=== PATIENT | male | born 1950 | race Caucasian/White ===

== ENCOUNTER 2018-09-02 11:04 | Emergency (ER) | payer BC ==
[2018-09-02] MEDS ORDERED: Pepcid 20 MG VIAL IV ONE ×2 (11:20→11:33)
[2018-09-02 11:29] LABS: BASOPHIL % 0.6 % (0.0-0.4); Basophil (Absolute #) 0.05 (0-0.4); Eosinophil % 3.3 % (0.00-5.0); Eosinophil (Absolute #) 0.28 (0-0.5); Granulocytes % 52.6 % (36.0-66.0); Hemoglobin 13.1 gm/dl (12.5-18.0); Lymphocyte (Absolute #) 2.87 (1.0-4.6); Lymphocytes % 33.5 % (24.0-44.0); Mean Cell Volume 96.1 fl (78-100); Mean Corpuscular Hgb Concent. 33.6 g/dl (32-36); Mean Platelet Volume 9.1 fl (6-9.5); Monocyte (Absolute #) 0.86 (0.0-1.3); Platelet Count 231 K/mm3 (150-450); Red Blood Count 4.06 M/mm3 (4.1-5.6); Red Cell Distribution Width 12.3 % (11.5-14.0); White Blood Count 8.6 K/mm3 (4.0-10.5)
[2018-09-02] MEDS: Nitrostat 0.4 MG (ED) SL ONE ×2 (11:34→11:49)
--- NOTE | 2018-09-02 11:43 | ERPHSYRPT ---
- History of Present Illness Time Seen by Provider: 09/02/18 11:40 Historian: patient, family Exam Limitations: no limitations Patient Subjective Stated Complaint: PT states "I think I am having a heart attack. My gums hurt, my chest hurts, it feels julst like the last one I had." Triage Nursing Assessment: Pt presented through the front door, alert and oriented X 3, skin pwd. PT ambulates with an upright steady gait, able to speak in clear full sentences. pt in no apparent respiratory distress. Physician History: PT states "I think I am having a heart attack. My gums hurt, my chest hurts, it feels julst like the last one I had." Pain in epigatric area, radiate to left arm, tingling and numbness and pain around lips, mouth while working on [employer] Timing/Duration: today Activities at Onset: activity Quality: aching Location: substernal Chest Pain Radiation: jaw, arm Severity of Pain-Max: moderate Severity of Pain-Current: mild Modifying Factors: Improves With: nothing Associated Symptoms: denies symptoms Prior Chest Pain/Cardiac Workup: echocardiography, stress test, recently seen/ treated Aspirin Treatment Today: 81 mg x 1 Allergies/Adverse Reactions: naproxen sodium [From Aleve] Allergy (Verified 06/25/14 11:18) Home Medications: Citalopram Hydrobromide 20 mg* [ceLEXa 20 MG] 20 mg PO DAILY 06/25/14 [ History] Clopidogrel Bisulfate [Plavix] 75 mg PO DAILY 06/25/14 [History] Simvastatin [Zocor] 20 mg PO DAILY 06/25/14 [History] Hx Tetanus, Diphtheria Vaccination/Date Given: No Hx Influenza Vaccination/Date Given: Yes Hx Pneumococcal Vaccination/Date Given: No Immunizations Up to Date: Yes - Review of Systems Constitutional: No Fever, No Chills Eyes: No Symptoms Ears, Nose, & Throat: No Symptoms Respiratory: No Cough, No Dyspnea Cardiac: Chest Pain, No Edema, No Syncope Abdominal/Gastrointestinal: No Abdominal Pain, No Nausea, No Vomiting, No Diarrhea Genitourinary Symptoms: No Dysuria Musculoskeletal: No Back Pain, No Neck Pain Skin: No Rash Neurological: No Dizziness, No Focal Weakness, No Sensory Changes Psychological: No Symptoms Endocrine: No Symptoms All Other Systems: Reviewed and Negative - Past Medical History Pertinent Past Medical History: Yes Neurological History: No Pertinent History ENT History: No Pertinent History Cardiac History: High Cholesterol, Myocardial Infarction ([place]), Other Respiratory History: No Pertinent History Endocrine Medical History: No Pertinent History Musculoskeletal History: No Pertinent History GI Medical History: No Pertinent History History: No Pertinent History Psycho-Social History: No Pertinent History Male Reproductive Disorders: No Pertinent History Other Medical History: heart stent placed 8 years ago with mild heart attack - Past Surgical History Past Surgical History: Yes Neuro Surgical History: No Pertinent History Cardiac: Cardiac Catheterization, Cardiac Stent Respiratory: No Pertinent History Gastrointestinal: No Pertinent History Genitourinary: No Pertinent History Musculoskeletal: No Pertinent History Male Surgical History: No Pertinent History - Social History Smoking Status: Former smoker Exposure to second hand smoke: Yes Drug Use: none Patient Lives Alone: No - Nursing Vital Signs Nursing Vital Signs: Initial Vital Signs Temperature 98.1 F 09/02/18 11:07 Pulse Rate 70 09/02/18 11:07 Respiratory Rate 16 09/02/18 11:07 Blood Pressure 162/72 09/02/18 11:07 O2 Sat by Pulse Oximetry 97 09/02/18 11:07 Pain Scale Pain Intensity 0 - Physical Exam General Appearance: no apparent distress, alert Eye Exam: PERRL/EOMI, eyes nml inspection Ears, Nose, Throat Exam: normal ENT inspection, moist mucous membranes Neck Exam: normal inspection, non-tender, supple, full range of motion Respiratory Exam: normal breath sounds, lungs clear, No respiratory distress Cardiovascular Exam: regular rate/rhythm, normal heart sounds Gastrointestinal/Abdomen Exam: soft, No tenderness, No mass Back Exam: normal inspection, No CVA tenderness, No vertebral tenderness Extremity Exam: normal inspection, normal range of motion Neurologic Exam: alert, oriented x 3, cooperative, normal mood/affect, sensation nml, No motor deficits Skin Exam: normal color, warm, dry SpO2: 97 - Course Nursing assessment & vital signs reviewed: Yes EKG Interpreted by Me: Sinus Rhythm, NORMAL ST-T Rhythm Strip: Normal Sinus Rhythm - Radiology Exams Chest X-ray Interpretation: Reviewed by me, Negative Ordered Tests: Active Orders 24 hr Category Date Time Status EKG-ER Only STAT Care 09/02/18 11:20 Active IV Insertion STAT Care 09/02/18 11:20 Active CHEST 2 VIEWS (PA AND LAT) Stat Exams 09/02/18 11:21 Taken AMYLASE Stat Lab 09/02/18 11:20 Completed CBC W DIFF Stat Lab 09/02/18 11:20 Completed CMP Stat Lab 09/02/18 11:20 Completed LIPASE Stat Lab 09/02/18 11:20 Completed TROPONIN Q3H Lab 09/02/18 11:20 Completed TROPONIN Q3H Lab 09/02/18 14:30 Ordered TROPONIN Q3H Lab 09/02/18 17:30 Ordered TROPONIN Q3H Lab 09/02/18 20:30 Ordered TROPONIN Q3H Lab 09/02/18 23:30 Ordered Medication Summary Discontinued Medications Generic Name Dose Route Start Last Admin Trade Name Freq PRN Reason Stop Dose Admin Famotidine 20 mg 09/02/18 11:20 09/02/18 11:34 Pepcid 20 Mg Vial IV 09/02/18 11:21 20 mg STAT ONE Administration Famotidine Confirm 09/02/18 11:33 Pepcid 20 Mg Vial Administered 09/02/18 11:34 Dose 20 mg IV .STK-MED ONE Nitroglycerin 0.4 mg 09/02/18 11:20 09/02/18 11:49 Nitrostat 0.4 Mg (Ed) SL 09/02/18 11:21 Not Given STAT ONE Lab/Rad Data: Laboratory Result Diagrams 09/02/18 11:20 09/02/18 11:20 Laboratory Results 09/02/18 09/02/18 09/02/18 Range/Units Unknown 11:20 11:20 WBC (4.0-10.5) K/mm3 RBC (4.1-5.6) M/mm3 Hgb (12.5-18.0) gm/dl Hct (42-50) % MCV (78-100) fl MCH (26-32) pg MCHC (32-36) g/dl RDW (11.5-14.0) % Plt Count (150-450) K/mm3 MPV (6-9.5) fl Gran % (36.0-66.0) % Eos # (Auto) (0-0.5) Absolute Lymphs (auto) (1.0-4.6) Absolute Monos (auto) (0.0-1.3) Lymphocytes % (24.0-44.0) % Monocytes % (0.0-12.0) % Eosinophils % (0.00-5.0) % Basophils % (0.0-0.4) % Absolute Granulocytes (1.4-6.9) Basophils # (0-0.4) Sodium 143 (137-145) mmol/L Potassium 3.9 (3.5-5.1) mmol/L Chloride 104 (98-107) mmol/L Carbon Dioxide 27 (22-30) mmol/L Anion Gap 14.9 (5-15) MEQ/L BUN 15 (9-20) mg/dL Creatinine 0.93 (0.66-1.25) mg/dL Estimated GFR > 60.0 ML/MIN Glucose 160 H (74-106) mg/dL Hemoglobin A1c 6.68 H (4.5-6.0) % Calcium 9.3 (8.4-10.2) mg/dL Total Bilirubin 0.60 (0.2-1.3) mg/dL AST 29 (17-59) U/L ALT 31 (0-50) U/L Alkaline Phosphatase 77 (38-126) U/L Troponin I < 0.012 (0.000-0.034) ng/mL Serum Total Protein 7.3 (6.3-8.2) g/dL Albumin 4.0 (3.5-5.0) g/dL Amylase 155 H (30-110) U/L Lipase 433 H (23-300) U/L 09/02/18 Range/Units 11:20 WBC 8.6 (4.0-10.5) K/mm3 RBC 4.06 L (4.1-5.6) M/mm3 Hgb 13.1 (12.5-18.0) gm/dl Hct 39.0 L (42-50) % MCV 96.1 (78-100) fl MCH 32.2 H (26-32) pg MCHC 33.6 (32-36) g/dl RDW 12.3 (11.5-14.0) % Plt Count 231 (150-450) K/mm3 MPV 9.1 (6-9.5) fl Gran % 52.6 (36.0-66.0) % Eos # (Auto) 0.28 (0-0.5) Absolute Lymphs (auto) 2.87 (1.0-4.6) Absolute Monos (auto) 0.86 (0.0-1.3) Lymphocytes % 33.5 (24.0-44.0) % Monocytes % 10.0 (0.0-12.0) % Eosinophils % 3.3 (0.00-5.0) % Basophils % 0.6 (0.0-0.4) % Absolute Granulocytes 4.50 (1.4-6.9) Basophils # 0.05 (0-0.4) Sodium (137-145) mmol/L Potassium (3.5-5.1) mmol/L Chloride (98-107) mmol/L Carbon Dioxide (22-30) mmol/L Anion Gap (5-15) MEQ/L BUN (9-20) mg/dL Creatinine (0.66-1.25) mg/dL Estimated GFR ML/MIN Glucose (74-106) mg/dL Hemoglobin A1c (4.5-6.0) % Calcium (8.4-10.2) mg/dL Total Bilirubin (0.2-1.3) mg/dL AST (17-59) U/L ALT (0-50) U/L Alkaline Phosphatase (38-126) U/L Troponin I (0.000-0.034) ng/mL Serum Total Protein (6.3-8.2) g/dL Albumin (3.5-5.0) g/dL Amylase (30-110) U/L Lipase (23-300) U/L - Progress Progress: improved Air Movement: good Blood Culture(s) Obtained: No Antibiotics given: No Counseled pt/family regarding: lab results, diagnosis, need for follow-up, rad results - Departure Departure Disposition: Home Clinical Impression: Chest pain due to GERD Type 2 diabetes mellitus Qualifiers: Diabetes mellitus joint terminal attack controller insulin use: without joint terminal attack controller use Diabetes mellitus complication status: with unspecified complications Qualified Code(s): E11.8 - Type 2 diabetes mellitus with unspecified complications Condition: Stable Critical Care Time: Yes Critical Care Time(excluding separately billable procedures): 30-74 minutes Referrals: OLIVE SHARIF [Primary Care Provider] - ADELITA RIZO [ACTIVE STAFF] - Instructions: Atypical Chest Pain, Acid Reflux (Gastroesophageal Reflux Disease ) in Adults, Type 2 Diabetes, Diabetes Exchange Diet, Diabetes Diet Additional Instructions: During your ER visit, we have performed some blood tests and x-rays. We have performed some blood test to rule out heart attack, which was negative. Your lipase and amylase which are digestive tract enzymes related to pancreatic inflammation suggests that there might be a possibility of either you have a acid reflux and all other gallbladder disease, for which she need further workup by your primary care physician. You should make an appointment in next 1 -2 days during weekdays with your primary care physician. During your ER visit, we also found that you are new onset diabetes mellitus type 2. Your hemoglobin A1c is 6.68, which puts you as a diabetic. We have started you on metformin Exide one tablet 500 mg daily as initial treatment, but you still need further workup and diabetes education as well as nutritional education which should be guided by your primary care physician. Discharge/Care Plan MENARDJUAN SALDANA was seen on 09/02/18 in the Emergency Room. The patient was counseled regarding Diagnosis,Lab results, Imaging studies, need for follow up and when to return to the Emergency Room. Prescriptions given: Discharge Note I have spoken with the patient and/or caregivers. I have explained the patient' s condition, diagnosis and treatment plan based on the information available to me at this time. I have answered the patient's and/or caregiver's questions and addressed any concerns. The patient and/or caregivers have as good understanding of the patient's diagnosis, condition and treatment plan as can be expected at this point. The vital signs have been stable. The patient's condition is stable and appropriate for discharge from the emergency department. The patient will pursue further outpatient evaluation with the primary care physician or other designated or consulting physician as outlined in the discharge instructions. The patient and/or caregivers are agreeable to this plan of care and follow-up instructions have been explained in detail. The patient and/or caregivers have received these instruction. The patient/and or caregivers are aware that any significant change in condition or worsening of symptoms should prompt an immediate return to this or the closest emergency department or call 911. Plan of Treatment: During your ER visit, we have performed some blood tests and x-rays. We have performed some blood test to rule out heart attack, which was negative. Your lipase and amylase which are digestive tract enzymes related to pancreatic inflammation suggests that there might be a possibility of either you have a acid reflux and all other gallbladder disease, for which she need further workup by your primary care physician. You should make an appointment in next 1 -2 days during weekdays with your primary care physician. During your ER visit, we also found that you are new onset diabetes mellitus type 2. Your hemoglobin A1c is 6.68, which puts you as a diabetic. We have started you on metformin Exide one tablet 500 mg daily as initial treatment, but you still need further workup and diabetes education as well as nutritional education which should be guided by your primary care physician. Prescriptions: Metformin HCl Xr 500 mg [Glucophage XR 500 MG] 500 mg PO DAILY #30 tab
[2018-09-02 12:01] LABS: Mean Corpuscular Hemoglobin 32.2 pg (26-32)
[2018-09-02 12:10] LABS: ALKALINE PHOSPHATASE 77 U/L (38-126); AMYLASE 155 U/L (30-110); ANION GAP 14.9 MEQ/L (5-15); BLOOD UREA NITROGEN 15 mg/dL (9-20); CHLORIDE 104 mmol/L (98-107); Calcium 9.3 mg/dL (8.4-10.2); Carbon Dioxide 27 mmol/L (22-30); Creatinine 1 0.93 mg/dL (0.66-1.25); Glucose 160 mg/dL (74-106); LIPASE 433 U/L (23-300); Potassium 3.9 mmol/L (3.5-5.1); SGOT/AST 29 U/L (17-59); SGPT/ALT 31 U/L (0-50); SODIUM 143 mmol/L (137-145); Total Protein 7.3 g/dL (6.3-8.2)
[2018-09-02 13:05] VITALS: BP 105/52; PULSE 63; O2SAT 97
--- NOTE | 2018-09-02 21:20 | XRAY ---
Indication: Epigastric pain. Comparison: None PA/lateral chest demonstrates right mid lung fibrosis/scarring. Remaining heart and lungs unremarkable. Bony thorax intact with mild degenerative changes and old left rib fractures. Impression: Nonacute chest with chronic features.
== END 2018-09-02 13:22 | disposition home or self-care (01) ==
LOC: ED 11:04
DX: K21.9 Gastro-esophageal reflux disease without esophagitis (principal); E11.8 Type 2 diabetes mellitus with unspecified complications; E78.00 Pure hypercholesterolemia, unspecified; Z79.899 Other long term (current) drug therapy; I25.2 Old myocardial infarction
CPT/HCPCS: 36000; 36415; 71046; 80053; 82150; 83036; 83690; 84484; 85025; 93005; 96374; 99284; A9270-GY

== ENCOUNTER 2018-10-23 09:22 | Day surgery (SDC) | payer BC ==
--- NOTE | 2018-10-23 08:35 | HP ---
AMENDED REPORT: DATE OF SURGERY: 10/23/2018 HISTORY OF PRESENT ILLNESS: The patient is a 67 year-old who three weeks ago had some chest pain. In the emergency room ultrasound showed sludge. No nausea, vomiting or diarrhea. No right upper quadrant pain. No jaundice. No change in bowel movements. Given his symptoms had probable chronic cholecystitis, symptomatic biliary sludge. He was given options. Considering progression of gallbladder disease over time prefers to proceed with cholecystectomy at this point. PAST MEDICAL HISTORY: Diabetes mellitus type 2. Hypercholesterolemia. Coronary stents in the past. PAST SURGICAL HISTORY: Appendectomy. Colonoscopy. MEDICATIONS: Omeprazole, Metformin, Plavix, Zocor, Prilosec. ALLERGIES: ALEVE. FAMILY HISTORY: Negative in regards to this problem. SOCIAL HISTORY: No smoking or alcohol abuse. REVIEW OF SYSTEMS: Fourteen systems reviewed per admission assessment. He has some heart disease and diabetes. Otherwise no chest pain or palpitations currently. PHYSICAL EXAMINATION: GENERAL: No acute distress. HEENT: Sclerae nonicteric. NECK: No JVD. CHEST: Equal excursion, nonlabored breathing. CVS: Regular rate and rhythm. ABDOMEN: Soft. No peritoneal signs. EXTREMITIES: No significant edema. NEURO: Alert, oriented, moving extremities symmetrically. No gross motor deficits noted. IMPRESSION: Biliary colic, symptomatic biliary sludge, chronic cholecystitis. I feel the patient will benefit from cholecystectomy. Risks and benefits explained in detail including but not limited to bleeding or infection, risk of trocar injury or hernia, small risk of bowel, bladder or blood vessel injury, small risk of bile leak, bile duct injury, retained stone or sludge possibly requiring further procedure either open or ERCP, general risk of anesthesia, deep venous thrombosis, pulmonary embolism, pneumonia, perioperative risk of aches, pains, bloating, constipation and/or loose stools possibly even chronic in nature, possibility of needing open procedure, possibility procedure may not improve his symptoms. He may need further work up and/or testing, endoscopy, other studies or procedures. He understands and agrees to the planned procedure, will proceed with laparoscopic cholecystectomy with possible open as an outpatient.
[~2018-10-23 09:22] MED LIST: Lactated Ringers 1,000 ML IV ONE; Sensorcaine 0.25% 10 ML ONE
[2018-10-23 09:55] LABS: Hematocrit 40.2 % (42-50); Hemoglobin 13.8 gm/dl (12.5-18.0); Mean Cell Volume 96.2 fl (78-100); Mean Corpuscular Hgb Concent. 34.3 g/dl (32-36); Mean Platelet Volume 9.3 fl (6-9.5); Platelet Count 248 K/mm3 (150-450); Red Blood Count 4.18 M/mm3 (4.1-5.6)
[2018-10-23] MEDS ORDERED: MEFOXIN 2 GM PREMIX** 2 GM/50 ML ML IV ONE (09:59)
[2018-10-23] MEDS ORDERED: MEFOXIN 2 GM PREMIX** 2 GM/50 ML ML IV SCH (10:00)
[2018-10-23] MEDS ORDERED: Lactated Ringers 1,000 ML IV SCH (10:00)
[2018-10-23 10:05] LABS: ALBUMIN 4.2 g/dL (3.5-5.0); ALKALINE PHOSPHATASE 67 U/L (38-126); ANION GAP 12.4 MEQ/L (5-15); BLOOD UREA NITROGEN 17 mg/dL (9-20); CHLORIDE 108 mmol/L (98-107); Calcium 9.5 mg/dL (8.4-10.2); Carbon Dioxide 26 mmol/L (22-30); Creatinine 1 0.84 mg/dL (0.66-1.25); Glucose 122 mg/dL (74-106); Potassium 4.3 mmol/L (3.5-5.1); SGOT/AST 20 U/L (17-59); SGPT/ALT 22 U/L (0-50); SODIUM 142 mmol/L (137-145); Total Protein 7.3 g/dL (6.3-8.2)
[2018-10-23] MEDS ORDERED: SUBLIMAZE 100 MCG/2 ML ONE ×2 (10:17→12:39)
[2018-10-23] MEDS ORDERED: Quelicin Fliptop 200 MG/10 ML ONE (10:17)
[2018-10-23] MEDS ORDERED: DIPRIVAN 200 MG/20 ML IV ONE (10:17)
[2018-10-23] MEDS ORDERED: Zemuron 100 MG/10 ML ONE (10:17)
[2018-10-23] MEDS ORDERED: Ephedrine Sulfate 50 MG/ML ONE (11:56)
[2018-10-23] MEDS ORDERED: Decadron 4 MG INJ ONE (11:58)
[2018-10-23] MEDS ORDERED: Zofran 4 MG/2 ML VIAL ONE (11:58)
[2018-10-23] MEDS ORDERED: TORAdol 30 mg Injection ONE (12:19)
[2018-10-23] MEDS ORDERED: BRIDION 200MG/2ML IV ONE (12:19)
[2018-10-23] MEDS ORDERED: DILAUDID 2 MG INJECTION ONE (12:57)
[2018-10-23 14:32] VITALS: O2SAT 92
[2018-10-23 15:04] VITALS: BP 141/75; PULSE 83
--- NOTE | 2018-10-23 15:25 | OP ---
SURGERY DATE/TIME: 10/23/2018 1145 PREOPERATIVE DIAGNOSIS: Symptomatic biliary colic, symptomatic biliary sludge, chronic cholecystitis. POSTOPERATIVE DIAGNOSIS: Symptomatic biliary colic, symptomatic biliary sludge, chronic cholecystitis. PROCEDURE: Laparoscopic cholecystectomy. SURGEON: Dr. Will Morton. ANESTHESIA: General. ESTIMATED BLOOD LOSS: Minimal. INDICATIONS: As noted above. Risks and benefits explained in detail but not limited to and consent obtained. DESCRIPTION OF PROCEDURE AND FINDINGS: The patient was taken to the OR. General anesthesia induced. Abdomen prepped and draped in the usual sterile fashion. After official time out and no disagreement with planned procedure, a transverse incision made at the supraumbilical area. Fascia grasped and pulled upward. Veress needle inserted and tested with saline. Pneumoperitoneum accomplished insufflating opening pressure of 0-15. An 11 mm bladeless port and camera inserted without difficulty followed by two - 5 mm right upper quadrant ports and 5 mm epigastric port. The gallbladder grasped retracted over the edge of the liver. Dissection carried posterior, lateral to anterior fashion. Slowly carefully cystic duct and infundibular area slowly and carefully well skeletonized until the critical view obtained both anteriorly and posteriorly. Once this was accomplished the cystic duct and cystic artery clipped x3 and divided in usual fashion. One of the gallbladder graspers tore a small hole in the body of the gallbladder spilling small amount of bile. There was no evidence of any stone or sludge spillage, this was suction irrigated as clear as possible. The gallbladder is slowly and carefully dissected free from its dense attachment to the liver bed staying directly on the gallbladder wall clipping additional side branches off the cystic artery as necessary directly on the gallbladder wall. Just prior to releasing from final attachments to anterior edge of the liver the liver bed re-inspected. Clips noted in place in cystic duct and cystic artery stumps. There was slight amount of ooze from a vein on the lateral aspect of the peritoneal reflection edge of the liver up towards the anterior edge of the liver, this required clipping with a Ligaclip. Good hemostasis then noted. Gallbladder released from final attachments anterior edge of the liver placed in Pleatman's sac, pulled up and out the 10-11 port site at the supraumbilical area passed off for pathology. Copious amount of irrigation accomplished lateral to the liver and subhepatic space irrigating until clear. Liver bed re-inspected. Clips noted in place in cystic duct and cystic artery stumps. There were no signs of any active bleeding or bile leakage. It was felt there was no benefit from drain placement. At this point the fascia defect 10/11 site closed with puncture closure device and #1 Vicryl under direct vision of the camera. Pneumoperitoneum decompressed. The wound was irrigated out. Skin incision closed with 4-0 Vicryl. A little bit of oozing subcu in the supraumbilical site this is controlled with pinpoint cautery. Good hemostasis noted. Skin closed with 4-0 Vicryl. Steri-Strips and sterile dressing applied. The patient tolerated the procedure well. There were no immediate complications. Findings discussed with the family out in the waiting area.
== END 2018-10-23 14:55 | disposition home or self-care (01) ==
LOC: SDC 09:22
PROVIDERS: ATTEND Surgery
DX: K80.44 Calculus of bile duct with chronic cholecystitis without obstruction (principal); E11.9 Type 2 diabetes mellitus without complications; E78.00 Pure hypercholesterolemia, unspecified; E78.5 Hyperlipidemia, unspecified; I25.10 Atherosclerotic heart disease of native coronary artery without angina pectoris; Z79.01 Long term (current) use of anticoagulants; Z79.899 Other long term (current) drug therapy
CPT/HCPCS: 36415; 80053; 85027; 88305; J0330; J0694; J1100; J1170; J1885; J2405; J2704; J3010

== ENCOUNTER 2019-01-22 05:49 | Day surgery (SDC) | payer BC ==
[2019-01-22] MEDS ORDERED: Lactated Ringers 1,000 ML IV SCH (06:00)
[2019-01-22] MEDS ORDERED: DIPRIVAN 200 MG/20 ML IV ONE ×2 (06:53→07:14)
[2019-01-22] MEDS ORDERED: Ketamine HCl 50 MG/ML ONE (06:53)
[2019-01-22 08:16] VITALS: BP 114/65; PULSE 61; O2SAT 96
--- NOTE | 2019-01-22 10:53 | OP ---
SURGERY DATE/TIME: 01/22/2019 0657 PREOPERATIVE DIAGNOSIS: History of colon polyps. POSTOPERATIVE DIAGNOSIS: Two small polyps, one in the ascending and one in the transverse colon and sigmoid diverticulosis. PROCEDURE: Colonoscopy with cold forceps biopsy. SURGEON: Dr. Ellis. ANESTHESIA: MAC. Medications given by anesthesia department. HISTORY: The patient is a 68 year-old white male now presenting for repeat examination. He previously had colon polyp approximately three years ago. The patient was felt the need to have endoscopic evaluation. He was appraised of the risks of the procedure including the risk of perforation, phlebitis, untoward reaction to medication, bleeding and missed lesions. The patient verbalized his understanding and desired to have the procedure performed. DESCRIPTION OF PROCEDURE: The patient was given the medications by the anesthesia department. He had continuous pulse oximetry, ECG monitoring, intermittent blood pressure monitoring and tidal CO2 monitoring during the examination. He was placed in the left lateral decubitus position. A digital rectal examination was performed and revealed normal anal sphincter tone, no masses and normal prostate. The flexible Olympus pediatric colonoscope was used to intubate the rectum. A view of the colon was developed sequentially to the cecum. Upon insertion and withdrawal there was noted small polyp in the ascending and transverse colon destroyed using cold biopsy forceps. The patient was also noted to have scattered sigmoid diverticula otherwise no otherwise no other mucosal lesions were encountered. The scope was removed from the patient who tolerated the procedure well and was sent back to OP recovery in good condition. The prep was noted to be fair.
== END 2019-01-22 08:32 | disposition home or self-care (01) ==
LOC: SDC 05:49
PROVIDERS: ATTEND Family Medicine
DX: Z12.11 Encounter for screening for malignant neoplasm of colon (principal); D12.2 Benign neoplasm of ascending colon; D12.3 Benign neoplasm of transverse colon; Z86.010 Personal history of colon polyps; K57.30 Diverticulosis of large intestine without perforation or abscess without bleeding; E11.9 Type 2 diabetes mellitus without complications; E78.5 Hyperlipidemia, unspecified; I25.10 Atherosclerotic heart disease of native coronary artery without angina pectoris
CPT/HCPCS: 82962; 88305; J2704

== ENCOUNTER 2020-11-05 15:34 | Day surgery (SDC) | payer MEDICARE, OTHER ==
[2020-11-05] MEDS ORDERED: Sodium Chloride 0.9(Preservative Free) 10 ML IJ ONE (15:35)
[2020-11-05] MEDS ORDERED: Xylocaine 1% Vial 30 ML PF IJ ONE (15:35)
[2020-11-05] MEDS ORDERED: Decadron 4 MG INJ IV ONE (15:35)
[2020-11-05] MEDS ORDERED: Lactated Ringers 1,000 ML IV ONE (18:01)
--- NOTE | 2020-11-06 11:54 | XRAY ---
41 seconds fluoroscopy time in surgery for cervical MAIN.
--- NOTE | 2020-11-09 00:58 | XRAY ---
Indication: Cervical MAIN. Intraoperative fluoroscopy was provided for 41 seconds. 2 digital spot images submitted for interpretation demonstrate a single the needle tip projected over the cervical-thoracic junction near the midline. A small amount of contrast has been injected for needle tip placement. Correlate with intraoperative findings/report.
== END 2020-11-05 17:39 | disposition home or self-care (01) ==
LOC: SDC-PAIN 15:34
PROVIDERS: ATTEND Psychiatry & Neurology Pain Medicine
DX: M54.12 Radiculopathy, cervical region (principal); E11.9 Type 2 diabetes mellitus without complications; Z79.899 Other long term (current) drug therapy
CPT/HCPCS: 62321; 72040; 77003; 82947; J1100; J2001; Q9966

== ENCOUNTER 2022-05-12 10:53 | Day surgery (SDC) | payer MEDICARE, OTHER ==
[2022-05-12] MEDS ORDERED: Decadron 4 MG INJ IV ONE (10:54)
[2022-05-12] MEDS ORDERED: Sodium Chloride 0.9(Preservative Free) 10 ML IJ ONE (10:54)
[2022-05-12] MEDS ORDERED: LIDOCAINE HCL 1% 50 MG/5 ML VL PF IJ ONE (10:54)
[2022-05-12] MEDS ORDERED: Lactated Ringers 1,000 ML IV ONE (13:19)
--- NOTE | 2022-05-12 14:39 | XRAY ---
Indication: Cervical MAIN. Intraoperative fluoroscopy provided for 42 seconds. 7 digital spot image submitted for interpretation demonstrates posterior needle tip projecting posterior to cervical thoracic junction. Small amount of contrast injected for needle tip placement. Correlate with intraoperative findings/report.
--- NOTE | 2022-05-12 14:49 | XRAY ---
42 seconds fluoroscopy time in surgery for cervical MAIN.
== END 2022-05-12 12:53 | disposition home or self-care (01) ==
LOC: SDC-PAIN 10:53
PROVIDERS: ATTEND Psychiatry & Neurology Pain Medicine
DX: M54.12 Radiculopathy, cervical region (principal); Z79.899 Other long term (current) drug therapy
CPT/HCPCS: 62321; 72040; 77003; 82947; J1100; J2001; Q9966

== ENCOUNTER 2022-05-30 17:36 | Emergency (ER) | payer MEDICARE, OTHER ==
[2022-05-30] MEDS ORDERED: Sodium Chloride 0.9% 1000 ML 1,000 ML IV STA (17:46)
[2022-05-30] MEDS ORDERED: Sodium Chloride 0.9% 1000 ML 1,000 ML ONE (18:05)
[2022-05-30] MEDS ORDERED: HYDROCODONE-ACETAMIN 2.5-108/5 ML SOLUTION ONE ×2 (18:05→19:43)
[2022-05-30] MEDS ORDERED: HYDROCODONE-ACETAMIN 2.5-108/5 ML SOLUTION PO STA ×2 (18:08→19:42)
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
[2022-05-30 18:30] LABS: BASOPHIL % 0.6 % (0.0-0.4); Basophil (Absolute #) 0.06 x10^3/uL (0-0.4); Eosinophil % 3.8 % (0.00-5.0); Eosinophil (Absolute #) 0.39 x10^3/uL (0-0.5); Hematocrit 44.2 % (42-50); Hemoglobin 14.4 g/dL (12.5-18.0); IMMATURE GRAN # 0.04 x10^3u/L (0.00-0.03); IMMATURE GRAN % 0.4 % (0.00-0.4); Lymphocyte (Absolute #) 1.62 x10^3/uL (1.0-4.6); Lymphocytes % 15.8 % (24.0-44.0); Mean Cell Volume 96.5 fL (78-100); Mean Corpuscular Hemoglobin 31.4 pg (26-32); Mean Corpuscular Hgb Concent. 32.6 g/dL (32-36); Mean Platelet Volume 9.4 fL (7.5-11.0); Monocyte (Absolute #) 0.77 x10^3/uL (0.0-1.3); Monocytes % 7.5 % (0.0-12.0); Neutrophil % 71.9 % (36.0-66.0); Platelet Count 278 x10^3/uL (150-450); Red Blood Count 4.58 x10^6/uL (4.1-5.6); Red Cell Distribution Width 12.3 % (11.5-14.0); White Blood Count 10.3 x10^3/uL (4.0-10.5)
[2022-05-30 18:51] LABS: ALBUMIN 4.6 g/dL (3.5-5.0); ALKALINE PHOSPHATASE 75 U/L (38-126); BLOOD UREA NITROGEN 12 mg/dL (9-20); CHLORIDE 104 mmol/L (98-107); Carbon Dioxide 26 mmol/L (22-30); Creatinine 1 0.92 mg/dL (0.66-1.25); EST GLOMERULAR FILTRATION RATE > 60.0 ML/MIN; Glucose 142 mg/dL (74-106); NT PRO BNPII 47.4 pg/mL (<300); Potassium 5.5 mmol/L (3.5-5.1); SGOT/AST 31 U/L (17-59); SGPT/ALT 24 U/L (0-50); SODIUM 142 mmol/L (137-145); Total Protein 8.4 g/dL (6.3-8.2)
[2022-05-30 19:04] VITALS: PULSE 80; O2SAT 96
[2022-05-30 19:07] LABS: INFLUENZA A NEGATIVE (NEGATIVE); INFLUENZA B NEGATIVE (NEGATIVE); RESPIRATORY SYNCTIAL VIRUS NEGATIVE (Negative); SARS-CoV-2 Xpert Express NEGATIVE (NEGATIVE)
[2022-05-30 19:35] VITALS: BP 150/70
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
== END 2022-05-30 19:49 | disposition home or self-care (01) ==
LOC: ED 17:36
DX: J20.9 Acute bronchitis, unspecified (principal); R50.9 Fever, unspecified; R51.9 Headache, unspecified; R05.1 Acute cough; R53.1 Weakness; R07.9 Chest pain, unspecified; E78.5 Hyperlipidemia, unspecified; E11.9 Type 2 diabetes mellitus without complications; Z79.02 Long term (current) use of antithrombotics/antiplatelets; Z79.84 Long term (current) use of oral hypoglycemic drugs; Z79.891 Long term (current) use of opiate analgesic; Z79.52 Long term (current) use of systemic steroids; Z79.899 Other long term (current) drug therapy
CPT/HCPCS: 0241U; 36000; 36415; 71045; 80053; 83605; 83880; 84484; 85025; 87040; 93005; 99284; A9270-GY

== ENCOUNTER 2022-06-13 14:41 | Emergency (ER) | payer MEDICARE, OTHER ==
[2022-06-13] MEDS ORDERED: Rocephin 1000 MG INJ IM ONE (14:56)
[2022-06-13] MEDS ORDERED: solu-CORTEF 250MG IM ONE (14:58)
[2022-06-13] MEDS ORDERED: Rocephin 1000 MG INJ ONE (15:10)
[2022-06-13] MEDS ORDERED: solu-CORTEF 250MG ONE (15:10)
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
[2022-06-13 15:34] VITALS: BP 134/71; PULSE 92; O2SAT 97
== END 2022-06-13 15:43 | disposition home or self-care (01) ==
LOC: ED 14:41
DX: J20.8 Acute bronchitis due to other specified organisms (principal); R05.3 Chronic cough; E78.5 Hyperlipidemia, unspecified; E11.9 Type 2 diabetes mellitus without complications; Z79.02 Long term (current) use of antithrombotics/antiplatelets; Z79.84 Long term (current) use of oral hypoglycemic drugs; Z79.899 Other long term (current) drug therapy
CPT/HCPCS: 96372; 99283; 99291; J0696; J1720

== ENCOUNTER 2022-08-30 16:49 | Observation (INO) | payer MEDICARE, OTHER ==
[2022-08-30] MEDS ORDERED: BABY ASPIRIN 81 MG CHEW PO ONE (17:10)
[2022-08-30 17:17] LABS: Absolute Neutrophil Ct (ANC) 6.16 x10^3/uL (1.4-6.9); BASOPHIL % 0.7 % (0.0-0.4); Basophil (Absolute #) 0.07 x10^3/uL (0-0.4); Eosinophil % 5.4 % (0.00-5.0); Eosinophil (Absolute #) 0.57 x10^3/uL (0-0.5); Hematocrit 41.7 % (42-50); Hemoglobin 13.8 g/dL (12.5-18.0); IMMATURE GRAN # 0.03 x10^3u/L (0.00-0.03); IMMATURE GRAN % 0.3 % (0.00-0.4); Lymphocyte (Absolute #) 2.72 x10^3/uL (1.0-4.6); Mean Cell Volume 96.8 fL (78-100); Mean Corpuscular Hgb Concent. 33.1 g/dL (32-36); Mean Platelet Volume 9.5 fL (7.5-11.0); Monocyte (Absolute #) 0.93 x10^3/uL (0.0-1.3); Monocytes % 8.9 % (0.0-12.0); Neutrophil % 58.7 % (36.0-66.0); Platelet Count 255 x10^3/uL (150-450); Red Blood Count 4.31 x10^6/uL (4.1-5.6); Red Cell Distribution Width 12.2 % (11.5-14.0); White Blood Count 10.5 x10^3/uL (4.0-10.5)
[2022-08-30 17:34] LABS: ALBUMIN 4.1 g/dL (3.5-5.0); ALKALINE PHOSPHATASE 82 U/L (38-126); ANION GAP 11.8 MEQ/L (5-15); BLOOD UREA NITROGEN 18 mg/dL (9-20); CHLORIDE 107 mmol/L (98-107); Calcium 8.9 mg/dL (8.4-10.2); Carbon Dioxide 25 mmol/L (22-30); EST GLOMERULAR FILTRATION RATE > 60.0 ML/MIN; Glucose 173 mg/dL (74-106); NT PRO BNPII 39.7 pg/mL (<300); Potassium 4.8 mmol/L (3.5-5.1); SGOT/AST 25 U/L (17-59); SGPT/ALT 20 U/L (0-50); SODIUM 139 mmol/L (137-145); Total Protein 7.7 g/dL (6.3-8.2)
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
[2022-08-30] MEDS ORDERED: DUONEB 0.5-3 MG/3 ml Neb IH PRN (19:51)
[2022-08-30] MEDS ORDERED: TYLENOL 325 MG PO PRN (19:51)
[2022-08-30] MEDS ORDERED: Zofran 4 MG/2 ML VIAL IV PRN (19:51)
[2022-08-30] MEDS ORDERED: MORPHINE SULFATE 2 MG INJ IV PRN (19:51)
[2022-08-30] MEDS ORDERED: MAALOX ES 30 ML UNIT DOSE PO ONE (21:58)
[2022-08-30] MEDS ORDERED: ceLEXa 20 MG PO SCH (22:00)
[2022-08-30] MEDS ORDERED: VITAMIN D PO SCH (22:30)
[2022-08-30] MEDS ORDERED: PLAVIX Tablet PO SCH (22:30)
[2022-08-30] MEDS ORDERED: FISH OIL 1,000 MG CAPSULE PO SCH (22:30)
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
[2022-08-31 02:20] LABS: Absolute Neutrophil Ct (ANC) 3.83 x10^3/uL (1.4-6.9); BASOPHIL % 1.3 % (0.0-0.4); Basophil (Absolute #) 0.11 x10^3/uL (0-0.4); Eosinophil % 7.7 % (0.00-5.0); Eosinophil (Absolute #) 0.67 x10^3/uL (0-0.5); Hematocrit 40.9 % (42-50); Hemoglobin 13.4 g/dL (12.5-18.0); IMMATURE GRAN # 0.04 x10^3u/L (0.00-0.03); IMMATURE GRAN % 0.5 % (0.00-0.4); Lymphocyte (Absolute #) 3.19 x10^3/uL (1.0-4.6); Lymphocytes % 36.5 % (24.0-44.0); Mean Cell Volume 96.7 fL (78-100); Mean Corpuscular Hemoglobin 31.7 pg (26-32); Mean Corpuscular Hgb Concent. 32.8 g/dL (32-36); Mean Platelet Volume 9.3 fL (7.5-11.0); Monocyte (Absolute #) 0.91 x10^3/uL (0.0-1.3); Monocytes % 10.4 % (0.0-12.0); Neutrophil % 43.6 % (36.0-66.0); Platelet Count 238 x10^3/uL (150-450); Red Blood Count 4.23 x10^6/uL (4.1-5.6); Red Cell Distribution Width 12.2 % (11.5-14.0); White Blood Count 8.8 x10^3/uL (4.0-10.5)
[2022-08-31 02:32] LABS: ALBUMIN 3.9 g/dL (3.5-5.0); ALKALINE PHOSPHATASE 72 U/L (38-126); ANION GAP 11.2 MEQ/L (5-15); BLOOD UREA NITROGEN 16 mg/dL (9-20); CHLORIDE 105 mmol/L (98-107); Calcium 8.8 mg/dL (8.4-10.2); Carbon Dioxide 30 mmol/L (22-30); Creatinine 1 0.94 mg/dL (0.66-1.25); EST GLOMERULAR FILTRATION RATE > 60.0 ML/MIN; Glucose 128 mg/dL (74-106); SGOT/AST 20 U/L (17-59); SGPT/ALT 19 U/L (0-50); SODIUM 141 mmol/L (137-145); Total Protein 7.4 g/dL (6.3-8.2)
[2022-08-31] MEDS ORDERED: PROTONIX 40 MG IV IV ONE (04:34)
[2022-08-31 07:25] VITALS: O2SAT 94
[2022-08-31] MEDS ORDERED: PROTONIX 40 MG IV IV SCH ×2 (10:00→22:00)
[2022-08-31] MEDS ORDERED: ECOTRIN 81 MG PO SCH (10:00)
[2022-08-31 10:01] LABS: AMYLASE 85 U/L (30-110); LIPASE 79 U/L (23-300)
[2022-08-31 11:45] VITALS: BP 138/64; PULSE 65
--- NOTE | 2022-08-31 12:54 | XRAY ---
Indication: Epigastric pain. AAA. Conventional contrast enhanced CTA abdomen/pelvis with bilateral runoff performed using 125 cc Isovue 370 contrast. 2-D sagittal and coronal reformatted images obtained. Additional 3-D reformatted images obtained in separate workstation. Comparison: None Abdominal aorta is normal in course and caliber with very minimal distal eccentric arteriosclerotic calcifications. Normal branching celiac, superior mesenteric, and inferior mesenteric arteries. Very minimal calcification origin celiac artery without critical stenosis or obstruction. Widely patent superior mesenteric and inferior mesenteric arteries. A single widely patent renal artery supplies each kidney. Right leg runoff demonstrates very minimal arteriosclerotic calcifications in the common iliac and distal common femoral arteries. Remaining external iliac, common femoral, deep femoral, superficial femoral, popliteal, and trifurcation vessels are normal in CTA appearance. Peroneal artery tapers off lower leg level with the anterior and posterior tibial arteries crossing the ankle joint to supply the right foot. Left leg runoff demonstrates widely patent common iliac and external iliac arteries. Distal common femoral artery demonstrates very minimal arteriosclerotic calcifications. Remaining deep femoral, superficial femoral, popliteal, and trifurcation vessels are normal in CT appearance. Peroneal artery tapers off lower leg level with the anterior and posterior tibial arteries crossing the ankle joint to supply the left foot. Incidental soft tissue findings include mild diffuse fecal stasis, sigmoid diverticulosis, fatty liver, 1.5 cm right renal exophytic cyst, small fatty left inguinal hernia, and 2.4 x 3.7 x 6.4 cm intramuscular lipoma left rectus femoris muscle. Impression: 1. Very minimal arteriosclerotic calcifications distal aorta and origin celiac artery. Negative AAA. 2. Left and right leg runoff demonstrates very minimal arteriosclerotic calcifications without critical stenosis/obstruction. Remaining left and right leg runoff widely patent with 2 vessel runoff bilaterally. 3. Incidental CT findings including fecal stasis, sigmoid diverticulosis, fatty liver, right renal cyst, fatty left inguinal hernia, and left rectus femoris intramuscular lipoma.
[2022-08-31] MEDS ORDERED: ENOXAPARIN SODIUM SQ SCH (13:00)
--- NOTE | 2022-08-31 13:22 | PCM.DS ---
Discharge Summary Date of Admission: 08/30/22 19:40 Admitting Physician: CARI BRADY MD Primary Care Provider: ADELITA RIZO Allergies Allergies naproxen sodium [From Aleve] Allergy (Mild, Verified 08/30/22 20:25) Swelling Hospital Summary - Hospital Course Hospital Course: Pt is a 71 yo male pt of Dr. Rizo and Dr. Juarez with PMHx CAD, DM, HLD, hx VT, GENEVIEVE, GERD, and anxiety who was admitted through ER with CP to r/o VT. His EKG was nonacute and first troponin was negative. eGFR wnl. WBC nl. He was evaluated by telehospitalist and admitted to med surg. His second and third troponins were elevated and trending upward; pt was asleep and denying chest pain at that time. This morning he tells me that he has zero chest discomfort. He had started having epigastric pain yesterday about 4 pm and came to ER. Given 2 nitro. Had what he thought were reflux symptoms. He last saw Dr. Juarez about a year ago. He had a stent approx 20 years ago, and in 2021 had a heart cath at [facility] with moderate lesions of circmflex and R coronary oscar ry. Repeat EKG this morning with mild ST elevation in III only, NSR. Troponin now elevated to 0.230. I spoke with Dr. Juarez and will transfer pt to [facility] for possible heart catheterization. I spoke with the hospitalist, Dr. Pineda, as well, who will accept the patient. Pt given lovenox (1mg/kg SC q12h). Dr. Juarez wanted pt checked for AAA so CT abd/pelvis with runoff has been don e. - Vitals & Intake/Output Vital Signs: Vital Signs Temperature 97.7 F 08/31/22 11:44 Pulse Rate 65 08/31/22 11:44 Respiratory Rate 18 08/31/22 11:44 Blood Pressure 138/64 08/31/22 11:44 O2 Sat by Pulse Oximetry 94 L 08/31/22 11:44 Intake & Output: Intake & Output 08/29/22 08/30/22 08/31/22 09/01/22 11:59 11:59 11:59 11:59 Intake Total 360 Balance 360 Weight 112.7 kg - Lab Result Diagrams: 08/31/22 02:08 08/31/22 02:08 Lab Results-Last 24 Hrs: Lab Results-Last 24 Hours 08/30/22 08/30/22 08/30/22 Range/Units 17:00 17:00 17:00 WBC 10.5 (4.0-10.5) x10^3/uL RBC 4.31 (4.1-5.6) x10^6/uL Hgb 13.8 (12.5-18.0) g/dL Hct 41.7 L (42-50) % MCV 96.8 (78-100) fL MCH 32.0 (26-32) pg MCHC 33.1 (32-36) g/dL RDW 12.2 (11.5-14.0) % Plt Count 255 (150-450) x10^3/uL MPV 9.5 (7.5-11.0) fL Gran % 58.7 (36.0-66.0) % Immature Gran % (Auto) 0.3 (0.00-0.4) % Nucleat RBC Rel Count 0.0 (0.00-0.1) % Eos # (Auto) 0.57 H (0-0.5) x10^3/uL Immature Gran # (Auto) 0.03 (0.00-0.03) x10^3u/L Absolute Lymphs (auto) 2.72 (1.0-4.6) x10^3/uL Absolute Monos (auto) 0.93 (0.0-1.3) x10^3/uL Absolute Nucleated RBC 0.00 (0.00-0.01) x10^3u/L Lymphocytes % 26.0 (24.0-44.0) % Monocytes % 8.9 (0.0-12.0) % Eosinophils % 5.4 H (0.00-5.0) % Basophils % 0.7 (0.0-0.4) % Absolute Granulocytes 6.16 (1.4-6.9) x10^3/uL Basophils # 0.07 (0-0.4) x10^3/uL Sodium 139 (137-145) mmol/L Potassium 4.8 (3.5-5.1) mmol/L Chloride 107 (98-107) mmol/L Carbon Dioxide 25 (22-30) mmol/L Anion Gap 11.8 (5-15) MEQ/L BUN 18 (9-20) mg/dL Creatinine 1.00 (0.66-1.25) mg/dL Estimated GFR > 60.0 ML/MIN Glucose 173 H (74-106) mg/dL POC Glucometer (74 to 106) mg/dL Hemoglobin A1c (4.5-6.0) % Lactic Acid (0.4-2.0) Calcium 8.9 (8.4-10.2) mg/dL Total Bilirubin 0.60 (0.2-1.3) mg/dL AST 25 (17-59) U/L ALT 20 (0-50) U/L Alkaline Phosphatase 82 (38-126) U/L Troponin I 0.029 (0.000-0.034) ng/mL NT-Pro-B Natriuret Pep 39.7 (<300) pg/mL Serum Total Protein 7.7 (6.3-8.2) g/dL Albumin 4.1 (3.5-5.0) g/dL Amylase (30-110) U/L Lipase (23-300) U/L Procalcitonin (0.030-0.080) ng/mL 08/30/22 08/30/22 08/31/22 Range/Units 21:51 22:19 02:08 WBC (4.0-10.5) x10^3/uL RBC (4.1-5.6) x10^6/uL Hgb (12.5-18.0) g/dL Hct (42-50) % MCV (78-100) fL MCH (26-32) pg MCHC (32-36) g/dL RDW (11.5-14.0) % Plt Count (150-450) x10^3/uL MPV (7.5-11.0) fL Gran % (36.0-66.0) % Immature Gran % (Auto) (0.00-0.4) % Nucleat RBC Rel Count (0.00-0.1) % Eos # (Auto) (0-0.5) x10^3/uL Immature Gran # (Auto) (0.00-0.03) x10^3u/L Absolute Lymphs (auto) (1.0-4.6) x10^3/uL Absolute Monos (auto) (0.0-1.3) x10^3/uL Absolute Nucleated RBC (0.00-0.01) x10^3u/L Lymphocytes % (24.0-44.0) % Monocytes % (0.0-12.0) % Eosinophils % (0.00-5.0) % Basophils % (0.0-0.4) % Absolute Granulocytes (1.4-6.9) x10^3/uL Basophils # (0-0.4) x10^3/uL Sodium (137-145) mmol/L Potassium (3.5-5.1) mmol/L Chloride (98-107) mmol/L Carbon Dioxide (22-30) mmol/L Anion Gap (5-15) MEQ/L BUN (9-20) mg/dL Creatinine (0.66-1.25) mg/dL Estimated GFR ML/MIN Glucose (74-106) mg/dL POC Glucometer 217 H (74 to 106) mg/dL Hemoglobin A1c (4.5-6.0) % Lactic Acid (0.4-2.0) Calcium (8.4-10.2) mg/dL Total Bilirubin (0.2-1.3) mg/dL AST (17-59) U/L ALT (0-50) U/L Alkaline Phosphatase (38-126) U/L Troponin I 0.072 H* 0.189 H* (0.000-0.034) ng/mL NT-Pro-B Natriuret Pep (<300) pg/mL Serum Total Protein (6.3-8.2) g/dL Albumin (3.5-5.0) g/dL Amylase (30-110) U/L Lipase (23-300) U/L Procalcitonin (0.030-0.080) ng/mL 08/31/22 08/31/22 08/31/22 Range/Units 02:08 02:08 07:30 WBC 8.8 (4.0-10.5) x10^3/uL RBC 4.23 (4.1-5.6) x10^6/uL Hgb 13.4 (12.5-18.0) g/dL Hct 40.9 L (42-50) % MCV 96.7 (78-100) fL MCH 31.7 (26-32) pg MCHC 32.8 (32-36) g/dL RDW 12.2 (11.5-14.0) % Plt Count 238 (150-450) x10^3/uL MPV 9.3 (7.5-11.0) fL Gran % 43.6 (36.0-66.0) % Immature Gran % (Auto) 0.5 H (0.00-0.4) % Nucleat RBC Rel Count 0.0 (0.00-0.1) % Eos # (Auto) 0.67 H (0-0.5) x10^3/uL Immature Gran # (Auto) 0.04 H (0.00-0.03) x10^3u/L Absolute Lymphs (auto) 3.19 (1.0-4.6) x10^3/uL Absolute Monos (auto) 0.91 (0.0-1.3) x10^3/uL Absolute Nucleated RBC 0.00 (0.00-0.01) x10^3u/L Lymphocytes % 36.5 (24.0-44.0) % Monocytes % 10.4 (0.0-12.0) % Eosinophils % 7.7 H (0.00-5.0) % Basophils % 1.3 (0.0-0.4) % Absolute Granulocytes 3.83 (1.4-6.9) x10^3/uL Basophils # 0.11 (0-0.4) x10^3/uL Sodium 141 (137-145) mmol/L Potassium 5.0 (3.5-5.1) mmol/L Chloride 105 (98-107) mmol/L Carbon Dioxide 30 (22-30) mmol/L Anion Gap 11.2 (5-15) MEQ/L BUN 16 (9-20) mg/dL Creatinine 0.94 (0.66-1.25) mg/dL Estimated GFR > 60.0 ML/MIN Glucose 128 H (74-106) mg/dL POC Glucometer 148 H (74 to 106) mg/dL Hemoglobin A1c (4.5-6.0) % Lactic Acid (0.4-2.0) Calcium 8.8 (8.4-10.2) mg/dL Total Bilirubin 0.50 (0.2-1.3) mg/dL AST 20 (17-59) U/L ALT 19 (0-50) U/L Alkaline Phosphatase 72 (38-126) U/L Troponin I (0.000-0.034) ng/mL NT-Pro-B Natriuret Pep (<300) pg/mL Serum Total Protein 7.4 (6.3-8.2) g/dL Albumin 3.9 (3.5-5.0) g/dL Amylase (30-110) U/L Lipase (23-300) U/L Procalcitonin (0.030-0.080) ng/mL 08/31/22 08/31/22 08/31/22 Range/Units 08:06 08:20 08:20 WBC (4.0-10.5) x10^3/uL RBC (4.1-5.6) x10^6/uL Hgb (12.5-18.0) g/dL Hct (42-50) % MCV (78-100) fL MCH (26-32) pg MCHC (32-36) g/dL RDW (11.5-14.0) % Plt Count (150-450) x10^3/uL MPV (7.5-11.0) fL Gran % (36.0-66.0) % Immature Gran % (Auto) (0.00-0.4) % Nucleat RBC Rel Count (0.00-0.1) % Eos # (Auto) (0-0.5) x10^3/uL Immature Gran # (Auto) (0.00-0.03) x10^3u/L Absolute Lymphs (auto) (1.0-4.6) x10^3/uL Absolute Monos (auto) (0.0-1.3) x10^3/uL Absolute Nucleated RBC (0.00-0.01) x10^3u/L Lymphocytes % (24.0-44.0) % Monocytes % (0.0-12.0) % Eosinophils % (0.00-5.0) % Basophils % (0.0-0.4) % Absolute Granulocytes (1.4-6.9) x10^3/uL Basophils # (0-0.4) x10^3/uL Sodium (137-145) mmol/L Potassium (3.5-5.1) mmol/L Chloride (98-107) mmol/L Carbon Dioxide (22-30) mmol/L Anion Gap (5-15) MEQ/L BUN (9-20) mg/dL Creatinine (0.66-1.25) mg/dL Estimated GFR ML/MIN Glucose (74-106) mg/dL POC Glucometer (74 to 106) mg/dL Hemoglobin A1c 6.35 H (4.5-6.0) % Lactic Acid (0.4-2.0) Calcium (8.4-10.2) mg/dL Total Bilirubin (0.2-1.3) mg/dL AST (17-59) U/L ALT (0-50) U/L Alkaline Phosphatase (38-126) U/L Troponin I 0.230 H* (0.000-0.034) ng/mL NT-Pro-B Natriuret Pep (<300) pg/mL Serum Total Protein (6.3-8.2) g/dL Albumin (3.5-5.0) g/dL Amylase 85 (30-110) U/L Lipase 79 (23-300) U/L Procalcitonin (0.030-0.080) ng/mL 08/31/22 08/31/22 08/31/22 Range/Units 10:40 11:36 Unknown WBC (4.0-10.5) x10^3/uL RBC (4.1-5.6) x10^6/uL Hgb (12.5-18.0) g/dL Hct (42-50) % MCV (78-100) fL MCH (26-32) pg MCHC (32-36) g/dL RDW (11.5-14.0) % Plt Count (150-450) x10^3/uL MPV (7.5-11.0) fL Gran % (36.0-66.0) % Immature Gran % (Auto) (0.00-0.4) % Nucleat RBC Rel Count (0.00-0.1) % Eos # (Auto) (0-0.5) x10^3/uL Immature Gran # (Auto) (0.00-0.03) x10^3u/L Absolute Lymphs (auto) (1.0-4.6) x10^3/uL Absolute Monos (auto) (0.0-1.3) x10^3/uL Absolute Nucleated RBC (0.00-0.01) x10^3u/L Lymphocytes % (24.0-44.0) % Monocytes % (0.0-12.0) % Eosinophils % (0.00-5.0) % Basophils % (0.0-0.4) % Absolute Granulocytes (1.4-6.9) x10^3/uL Basophils # (0-0.4) x10^3/uL Sodium (137-145) mmol/L Potassium (3.5-5.1) mmol/L Chloride (98-107) mmol/L Carbon Dioxide (22-30) mmol/L Anion Gap (5-15) MEQ/L BUN (9-20) mg/dL Creatinine (0.66-1.25) mg/dL Estimated GFR ML/MIN Glucose (74-106) mg/dL POC Glucometer 144 H (74 to 106) mg/dL Hemoglobin A1c (4.5-6.0) % Lactic Acid 1.4 (0.4-2.0) Calcium (8.4-10.2) mg/dL Total Bilirubin (0.2-1.3) mg/dL AST (17-59) U/L ALT (0-50) U/L Alkaline Phosphatase (38-126) U/L Troponin I (0.000-0.034) ng/mL NT-Pro-B Natriuret Pep (<300) pg/mL Serum Total Protein (6.3-8.2) g/dL Albumin (3.5-5.0) g/dL Amylase (30-110) U/L Lipase (23-300) U/L Procalcitonin 0.052 (0.030-0.080) ng/mL Micro Results-Entire Visit: Accuchecks Date 08/31/22 Date 08/31/22 Time 11:44 Time 08:20 - Radiology Exams Ordered Rad Exams-Entire Visit: Radiology Procedures Category Date Time Status CHEST 1 VIEW (PORTABLE) Stat Exams 08/30/22 17:41 Completed CTA ABD/PEL W FEM RUNOFF [CT] Stat Exams 08/31/22 09:50 Completed - Procedures and Test Procedures and Tests throughout Hospitalization: Therapy Orders & Screens 08/30/22 21:21 Respiratory Therapy Assessment ONCE Comment: Diagnosis: CHEST PAIN R/O VT 08/31/22 07:40 EKG STAT Comment: Diagnosis: CHEST PAIN R/O VT Discharge Exam General Appearance: no apparent distress, obese Neurologic Exam: alert, oriented x 3, cooperative Eye Exam: eyes nml inspection Ears, Nose, Throat Exam: moist mucous membranes Neck Exam: normal inspection Respiratory Exam: normal breath sounds, lungs clear, No crackles/rales, No rhonchi, No wheezing Cardiovascular Exam: regular rate/rhythm, normal heart sounds, No murmur Gastrointestinal/Abdomen Exam: soft, normal bowel sounds, No tenderness, No distention, No mass, No guarding, No rebound Back Exam: normal inspection, No rash Extremity Exam: normal inspection, No pedal edema, No swelling Skin Exam: normal color, warm, dry, No rash Final Diagnosis/Problem List - Final Discharge Diagnosis/Problem (1) Acute coronary syndrome Current Visit: Yes Status: Acute Assessment & Plan: Troponins elevated. No marked EKG changes. I have spoken with Dr. Juarez and pt is to transfer to under Dr. Pineda, thank you. Lovenox 1mg/kg given. Code(s): I24.9 - ACUTE ISCHEMIC HEART DISEASE, UNSPECIFIED (2) Epigastric pain Current Visit: Yes Status: Acute Assessment & Plan: Was not present this morning. He was very well appearing. Likely the pain was related to ACS, but CT abd pending to r/o AAA. Code(s): R10.13 - EPIGASTRIC PAIN (3) Type 2 diabetes mellitus Current Visit: No Status: Chronic - Discharge Disposition: DC TO [facility] Condition: Stable Prescriptions: No Action Clopidogrel Bisulfate [Plavix] 75 mg PO HS Lawrence-3 Fatty Acids/Fish Oil [Fish Oil 1,000 mg Capsule] 1,000 mg PO HS Cholecalciferol (Vitamin D3) [Vitamin D] 1,000 unit PO HS Citalopram Hydrobromide 20 mg* [ceLEXa 20 MG] 20 mg PO HS PANTOPRAZOLE 40 mg Tablet [Protonix 40MG Tablet] 40 mg PO DAILY PRN PRN PRN Reason: GERD Follow up with: ADELITA RIZO [Primary Care Provider] -
== END 2022-08-31 14:25 | disposition home or self-care (01) ==
LOC: ED 16:49 → MED SURG 19:40
PROVIDERS: ADMIT Internal Medicine; ATTEND Family Medicine
DX: I24.9 Acute ischemic heart disease, unspecified (principal); R10.13 Epigastric pain; R07.9 Chest pain, unspecified; I25.10 Atherosclerotic heart disease of native coronary artery without angina pectoris; E78.5 Hyperlipidemia, unspecified; K21.9 Gastro-esophageal reflux disease without esophagitis; I25.2 Old myocardial infarction; E11.9 Type 2 diabetes mellitus without complications; Z79.01 Long term (current) use of anticoagulants; Z79.899 Other long term (current) drug therapy; Z20.828 Contact with and (suspected) exposure to other viral communicable diseases
CPT/HCPCS: 36000; 36415; 71045; 75635; 80053; 82150; 82947; 83036; 83605; 83690; 83880; 84145; 84484; 85025; 93005; 93041; 93268; 94760; 99285; J1650; A9270-GY; G0378

== ENCOUNTER 2023-09-05 09:58 | Day surgery (SDC) | payer MEDICARE, OTHER ==
--- NOTE | 2023-09-05 07:59 | HP ---
DATE OF SURGERY: 09/05/2023 HISTORY OF PRESENT ILLNESS: The patient is a 72-year-old with last colonoscopy a few years ago. No major bleeding. Problems with polyps or hemorrhoids, keeping himself clean. PAST MEDICAL HISTORY: Coronary artery disease, diabetes type II, depression, hyperlipidemia. PAST SURGICAL HISTORY: Tonsillectomy. Cholecystectomy. Cardiac catheterization. He had coronary stents. Appendectomy in the past. MEDICATIONS: Metformin, Celexa, rosuvastatin for hyperlipidemia. ALLERGIES: NAPROXEN SODIUM. HE IS SENSITIVE TO ALEVE. FAMILY HISTORY: Myocardial infarction. SOCIAL HISTORY: No smoking or alcohol abuse. REVIEW OF SYSTEMS: Twelve systems reviewed. No chest pain or palpitations. Other systems negative or noncontributory as above and per preadmission questionnaire. PHYSICAL EXAMINATION: Height 5 feet 9 inches. BMI 35. GENERAL: No acute distress. HEENT: Sclerae nonicteric. EOMI. Oral mucous membranes moist. NECK: No JVD. CHEST: Equal excursion, nonlabored breathing. CVS: Regular rate and rhythm. ABDOMEN: Soft. No peritoneal signs. EXTREMITIES: No significant edema. NEURO: Alert, oriented, moving extremities symmetrically. RECTAL: Mild problems with external hemorrhoids and internal hemorrhoids. PSYCH: Appropriate mood and affect. SKIN: Dry. IMPRESSION: History of polyps. History of internal hemorrhoids despite diet modification and conservative management. I recommend colonoscopy under general anesthesia possible internal hemorrhoid banding depending on operative findings. Risks and benefits explained in detail including but not limited to risk of bleeding or infection, risk of bowel injury possibly requiring open procedure, risk of incomplete exam possibly requiring barium enema, risk of missed or nondiagnosis requiring further procedure or referral, risk of sedation or anesthesia, risk of bowel prep but not limited to, as well as risk of bleeding or infection, risk of irregular spasm, risk of hemorrhoid progression possibly further procedure but not limited to. He understands and agrees to the planned procedure. Will proceed with colonoscopy under anesthesia or sedation possibly internal hemorrhoid banding depending on operative findings. Otherwise, continue medications for hyperlipidemia, diabetes, heart disease and depression.
[2023-09-05] MEDS: Lactated Ringers 1,000 ML IV SCH (10:10)
[2023-09-05] MEDS ORDERED: DIPRIVAN 200 MG/20 ML IV ONE ×2 (12:19→12:41)
[2023-09-05] MEDS ORDERED: Versed 2 MG/2 ML Injection ONE (12:20)
[2023-09-05 13:29] VITALS: RESP 18; TEMP 98
[2023-09-05 13:39] VITALS: BP 114/66; PULSE 67; O2SAT 97
--- NOTE | 2023-09-06 07:58 | OP ---
SURGERY DATE/TIME: 09/05/2023 1221 PREOPERATIVE DIAGNOSES: 1) History of polyps. 2) History of prolapsing internal hemorrhoids. POSTOPERATIVE DIAGNOSES: 1) Diverticulosis. 2) Small polyp. 3) Prolapsing grade 2 to 3 internal and external hemorrhoids. 4) ASA Class III. PROCEDURES: 1) Colonoscopy to cecum. 2) Hot biopsy polypectomy small early cecal polyp versus hyperplastic lesion, small early polyp versus hyperplastic lesion in the transverse colon. 3) Hot biopsy small early polyp versus hyperplastic lesion descending colon, sigmoid colon and rectum. 4) Hot snare polypectomy approximately 4 cm polyp sigmoid colon. 5) Internal hemorrhoid banding x3 columns. SURGEON: Dr. Matt Morton M.D. ANESTHESIA: MAC. QUANTITATIVE BLOOD LOSS: Minimal. INDICATIONS: As noted above, consent obtained. DESCRIPTION OF PROCEDURE AND FINDINGS: The patient is taken to the endoscopy room. MAC anesthesia induced. After official time out and no disagreement with planned procedure, digital rectal exam revealed some internal and external hemorrhoids. No palpable other masses. Video colonoscope inserted and passed up through the slightly tortuous sigmoid, descending, transverse and ascending colon. With the external pressure the scope was able to be passed to the cecum. Appendiceal orifice area was visualized. Prep overall was only fair with a fair amount of liquidy semi-solid stool throughout the colon that was suctioned and irrigated as clear as possible but did limit the exam for small lesions. The scope is slowly and carefully withdrawn. Small polyp in the cecum removed with hot biopsy polypectomy, small early polyp versus hyperplastic lesion in transverse colon, descending colon, sigmoid colon and rectum. These were all small 2 mm or so polyp versus hyperplastic lesion. There was an approximately 4 mm polyp in the sigmoid colon removed with hot snare polypectomy with brief bursts of cautery. Base appeared to be viable. Good hemostasis noted. The patient did have some diverticulosis in the left colon otherwise he had some grade 2 to 3 internal and external hemorrhoids. Given his symptoms, it was felt worthwhile to try trial of banding as requested per the patient. Therefore, once the scope removed half-cee retractor is carefully inserted first starting with the left lateral. 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 The patient tolerated the procedure well. There were no immediate complications. Findings discussed with the family out in the waiting area.
== END 2023-09-05 13:53 | disposition home or self-care (01) ==
LOC: SDC 09:58
PROVIDERS: ATTEND Surgery
DX: Z09 Encounter for follow-up examination after completed treatment for conditions other than malignant neoplasm (principal); Z86.010 Personal history of colon polyps; Z87.19 Personal history of other diseases of the digestive system; E11.9 Type 2 diabetes mellitus without complications; K57.30 Diverticulosis of large intestine without perforation or abscess without bleeding; K64.4 Residual hemorrhoidal skin tags; K64.8 Other hemorrhoids; D12.3 Benign neoplasm of transverse colon; K63.5 Polyp of colon
CPT/HCPCS: 82947; 93005; 99100; J2250; J2704

== ENCOUNTER 2023-12-28 13:44 | Day surgery (SDC) | payer MEDICARE, OTHER ==
[2023-12-28] MEDS ORDERED: Sodium Chloride 0.9(Preservative Free) 10 ML IJ ONE (13:45)
[2023-12-28] MEDS ORDERED: LIDOCAINE HCL 1% AMPUL 5 ML IJ ONE (13:45)
[2023-12-28] MEDS ORDERED: Decadron 4 MG INJ IV ONE (13:45)
[2023-12-28] MEDS ORDERED: Lactated Ringers 1,000 ML IV ONE (15:21)
--- NOTE | 2023-12-28 17:03 | XRAY ---
55 seconds of fluoroscopy were used in surgery for a cervical MAIN.
--- NOTE | 2023-12-29 14:54 | XRAY ---
Indication: Cervical MAIN. Intraoperative fluoroscopy provided for 55 seconds. 10 digital spot image submitted for interpretation demonstrates posterior needle tip projecting posterior to cervical thoracic junction. Small amount of contrast injected for needle tip placement. Correlate with intraoperative findings/report.
== END 2023-12-28 16:30 | disposition home or self-care (01) ==
LOC: SDC-PAIN 13:44
PROVIDERS: ATTEND Psychiatry & Neurology Pain Medicine
DX: M54.12 Radiculopathy, cervical region (principal); E11.9 Type 2 diabetes mellitus without complications
CPT/HCPCS: 62321; 72040; 77003; 82947; J1100; Q9966